=== PATIENT | male | born 1970 | race Caucasian/White ===

== ENCOUNTER 2017-01-13 19:52 | Emergency (ER) | payer OTHER ==
[~2017-01-13] VITALS: Ht 185.4 cm; Wt 109.4 kg
[2017-01-13 20:07] VITALS: BP 141/95
[2017-01-13] MEDS ORDERED: LIDOCAINE 1%, 20ML INFIL ONE (20:30)
[2017-01-13] MEDS ORDERED: BUPIVACAINE 0.25% ONE (20:30)
[2017-01-13] MEDS ORDERED: LIDOCAINE 1%, 20ML ONE (20:31)
[2017-01-13] MEDS ORDERED: DIPH,PERTUSS(ACELL),TET VAC/PF 0.5 ML IM-VACC ONE ×2 (21:00→21:53)
[2017-01-13] MEDS ORDERED: BACITRACIN ZINC OINT 500U/GM, 0.9 GM ONE (21:53)
== END 2017-01-13 21:52 | disposition home or self-care (01) ==
LOC: ED 21:46
DX: S61.215A Laceration without foreign body of left ring finger without damage to nail, initial encounter (principal); S61.218A Laceration without foreign body of other finger without damage to nail, initial encounter; X58.XXXA Exposure to other specified factors, initial encounter; Y93.89 Activity, other specified; Y92.009 Unspecified place in unspecified non-institutional (private) residence as the place of occurrence of the external cause; Y99.8 Other external cause status
CPT/HCPCS: 12002